=== PATIENT | female | born 1985 | race Caucasian/White ===

== ENCOUNTER → 2019-10-05 | Outpatient (CLI) | payer BC | END | disposition home or self-care (01) | LOC: LABWHC1 07:47 | PROVIDERS: ATTEND Family Medicine | DX: R07.0 Pain in throat (principal); R53.83 Other fatigue ==

== ENCOUNTER → 2021-10-31 | Outpatient (CLI) | payer BC ==
--- NOTE | 2021-10-31 14:22 | US ---
EXAMINATION TYPE: US pelvis complete transvag DATE OF EXAM: 10/31/2021 COMPARISON: NONE CLINICAL HISTORY: R10.32 ABDOMINAL PAIN. left pelvic pain TECHNIQUE: Transvaginal (TV) and Transabdominal (TA) . Transabdominal sonographic images of the pel vis were acquired. Transvaginal sonographic images were medically necessary to better assess the fol lowing anatomy: ovaries Date of LMP: 10/17/21 EXAM MEASUREMENTS: Uterus: 9.9 x 4.4 x 5.5 cm Endometrial Stripe: 1.0 cm Right Ovary: unable to visualize Left Ovary: 3.6 x 1.6 x 1.7 cm 1. Uterus: Anteverted heterogeneous. small fibroids noted, largest = 1.1 x 1.0cm 2. Endometrium: appears wnl 3. Right Ovary: Obscured by overlying bowel gas 4. Left Ovary: cyst = 1.5 x 1.4 x 1.7cm 5. Bilateral Adnexa: appears wnl 6. Posterior cul-de-sac: wnl IMPRESSION: 1. Uterine myometrium is heterogeneous with small hypoechoic nodules the largest measuring 1.1 cm cor relate for fibroid. 2. There is a left ovarian 1.5 x 1.7 cm hypoechoic nodule likely related to a cyst or hemorrhagic cys t. Follow-up to resolution in 4-6 weeks recommended. Also confirm with beta hCG to exclude potential ectopic .
== END | disposition home or self-care (01) ==
LOC: RADUSWWP 12:43
PROVIDERS: ATTEND Family Medicine
DX: N83.202 Unspecified ovarian cyst, left side (principal); D25.9 Leiomyoma of uterus, unspecified
CPT/HCPCS: 76830; 76856